=== PATIENT | female | born 1955 | race Caucasian/White ===

== ENCOUNTER 2020-10-24 06:06 | Inpatient (IN) | payer MEDICARE ==
[2020-10-18 14:59] LABS: BASOPHILS % (AUTO) 0.5 % (0-1); EOSINOPHILS # (AUTO) 0.1 X10'3 (0-0.9); EOSINOPHILS % (AUTO) 1.2 % (0-6); LYMPHOCYTES # (AUTO) 1.3 X10'3 (1.1-4.8); LYMPHOCYTES % (AUTO) 27.1 % (21-51); MEAN CORPUSCULAR HEMOGLOBIN 33.2 PG (27.0-31.0); MEAN CORPUSCULAR HGB CONC 33.8 g/dL (33.0-36.5); MEAN CORPUSCULAR VOLUME 98.4 FL (78-98); MONOCYTES # (AUTO) 0.5 X10'3 (0-0.9); MONOCYTES % (AUTO) 9.8 % (2-12); NEUTROPHILS % (AUTO) 61.4 % (42-75); PRE OP HEMATOCRIT 36.4 % (35.0-45.0); PRE OP HEMOGLOBIN 12.3 g/dL (12.0-16.0); PRE OP PLATELET COUNT 284 X10'3 (140-440); RED CELL DISTRIBUTION WIDTH 13.3 % (11.5-14.5)
[2020-10-18 15:12] LABS: PRE OP PROTIME 9.9 SECONDS (9.0-12.0)
[2020-10-18 15:22] LABS: CHLORIDE 99 MMOL/L (99-107); PRE OP POTASSIUM 3.4 MMOL/L (3.4-5.1)
[2020-10-18 15:32] LABS: ALBUMIN/GLOBULIN RATIO 1.2 (1.1-1.5); ALKALINE PHOSPHATASE 64 IU/L (46-116); BLOOD UREA NITROGEN 14 MG/DL (7-18); BUN/CREATININE RATIO 16.9 (6.6-38.0); CALCIUM 9.4 MG/DL (8.5-10.1); CREATININE 0.83 MG/DL (0.40-0.90); PRE OP ALT 19 U/L (30-65); PRE OP ANION GAP 7 (8-16); PRE OP AST 16 U/L (10-37); PRE OP BILIRUB, TOTAL 0.4 MG/DL (0.0-1.0); PRE OP GLUCOSE 95 MG/DL (70-104); PRE OP SODIUM 138 MMOL/L (135-145); TOTAL CARBON DIOXIDE 31.6 MMOL/L (24-32); TOTAL PROTEIN 7.4 G/DL (6.4-8.2); eGFR 69 ML/MIN
[~2020-10-24] VITALS: Ht 167.6 cm; Wt 69.5 kg
[2020-10-24] VITALS (23 sets, daily range): BP systolic 76–127; BP diastolic 41–79
[~2020-10-24 06:06] MED LIST: HYDR-3972 PO; LORA-269 PO; MULTIVITAMIN; POTASSIUM OTC; PRAV10TA39 PO; SERT25TA PO; SYN0.088T PO; VITAMIN D; acetaminophen 325mg tablet PO ONE; cefazolin/dext.iso 2gm/100ml IV ONE; celeCOXIB 100mg capsule PO ONE; famotidine 20mg tablet PO ONE; gabapentin 300mg capsule PO ONE; metoclopramide 5 mg/ml inj IV ONE; oxyCODONE SR 10mg (sust. release) tab -2 tabs (20mg) PO ONE; ringers solution, lacted 1,000 ML IV SCH; tranexamic acid inj. 1,000 MG in normal saline 100 ML IV ONE; vancomycin 1,500 MG in NS 300ml IV soln IV ONE
[2020-10-24] MEDS ORDERED: oxyCODONE/APAP 10/325mg tablet PO PRN (07:10)
[2020-10-24] MEDS ORDERED: magnesium hydroxide 30ml (MOM) UD suspension PO PRN (07:10)
[2020-10-24] MEDS ORDERED: HYDROmorphone inj. 0.5 MG/0.5 ML DISP.SYRIN IV PRN (07:10)
[2020-10-24] MEDS ORDERED: ondansetron/PF 4mg/2ml inj IV PRN ×2 (07:10→10:10)
[2020-10-24] MEDS ORDERED: HYDROmorphone 1 mg/ml syringe IV PRN (07:10)
[2020-10-24] MEDS ORDERED: acetaminophen 325mg tablet PO PRN (07:10)
[2020-10-24] MEDS ORDERED: diphenhydrAMINE 25mg capsule PO PRN ×2 (07:10)
[2020-10-24] MEDS ORDERED: bisacodyl 10mg suppository rectal RC PRN (07:10)
[2020-10-24] MEDS: ceFAZolin/D5W- 1GM premix 50 ML IV SCH ×2 (07:21→16:27)
[2020-10-24] MEDS: ascorbic acid 500mg tablet PO SCH ×2 (08:00→19:15)
[2020-10-24] MEDS ORDERED: sertraline 50mg tablet PO SCH (08:00)
[2020-10-24] MEDS: multivitamins, therapeutics tablet PO SCH (08:00)
[2020-10-24] MEDS: gabapentin 300mg capsule PO SCH ×3 (08:00→21:38)
[2020-10-24] MEDS ORDERED: epiNEPHrine 1 mg/ml inj ONE (08:21)
[2020-10-24] MEDS ORDERED: ketorolac trometh. 30mg/ml inj. ONE (08:21)
[2020-10-24] MEDS ORDERED: vancomycin 1,000mg inj ONE (08:21)
[2020-10-24] MEDS ORDERED: ROPIVAcaine 0.5% (5mg/ml) 30ml vial ONE ×2 (08:21→09:35)
[2020-10-24] MEDS ORDERED: cloNIDine hcl/PF 100mcg/ml inj ONE (08:21)
[2020-10-24] MEDS: aspirin 325mg tablet PO SCH (08:30)
[2020-10-24] MEDS ORDERED: MIDAZolam 1mg/ml 10ml vial ONE ×2 (09:24→09:53)
[2020-10-24] MEDS ORDERED: fentaNYL/PF 50MCG/1 ML 2ML syringe ONE (09:24)
[2020-10-24] MEDS ORDERED: propofol inj 20 ML IV ONE (10:01)
[2020-10-24] MEDS ORDERED: LIDOcaine 2% (20mg/ml) 5ml vial ONE ×2 (10:01→10:33)
[2020-10-24] MEDS ORDERED: morphine 2 MG/ML inj. syringe IV PRN (10:10)
[2020-10-24] MEDS ORDERED: fentaNYL/PF 50MCG/1 ML 2ML syringe IV PRN ×2 (10:10)
[2020-10-24] MEDS ORDERED: ROPIVAcaine 0.2% (10 MG/5 ML) BOLUS INJECTION ADDCANAL PRN (10:10)
[2020-10-24] MEDS ORDERED: labetalol 20mg/4ml (5mg/ml) syringe IV PRN (10:10)
[2020-10-24] MEDS ORDERED: ringers solution, lacted 1,000 ML IV SCH (10:10)
[2020-10-24] MEDS ORDERED: morphine 4 MG/ML inj SYRINge IV PRN (10:10)
[2020-10-24] MEDS ORDERED: hydrALAZINE 20mg/ml inj. IV PRN (10:10)
--- NOTE | 2020-10-24 10:58 | NUR ---
Received from OR via , accompanied by Anesthesiologist DR SHANKS and report given by Anesthesiolgist. PT PRESENTS WITH 18 G RIGHT HAND, DRESSING ON LEFT KNEE DRY AND INTACT. VSS. Addendum: 10/24/20 at 1109 by Keara Samuels RN, RN Amended: Links added.
--- NOTE | 2020-10-24 12:28 | NUR ---
PATIENT HAS MET ALL CRITERIA FOR TRANSFER TO THE ORTHO FLOOR. VSS. REPORT GIVEN TO MICHAEL RN DRESSINGS INTACT. BED LOW, CALL LIGHT PRESENT AND 2 RAILS UP. RN PRESENT TO ACCEPT CARE OF PATIENT AND REPORT HAS BEEN CALLED. ALL QUESTIONS ANSWERED TO ACCEPTING RN. Addendum: 10/24/20 at 1238 by Keara Baca - ALKA RN Amended: Links added.
[2020-10-24] MEDS ORDERED: tranexamic acid inj. 700 MG in normal saline 100ml IV soln 100 ML IV ONE (13:00)
[2020-10-24] MEDS: ROPIVAcaine 0.2%/PF PUMP/bolus 545 ML ADDCANAL SCH (13:38)
[2020-10-24] MEDS ORDERED: normal saline 1000ml 1,000 ML IV ONE (14:00)
--- NOTE | 2020-10-24 14:37 | NUR ---
Problems reprioritized. Patient report given, questions answered & plan of care reviewed with ALINA RUCKER.
--- NOTE | 2020-10-24 14:49 | NUR ---
0800 MEDS NOT GIVEN, PATIENT WAS IN OR
--- NOTE | 2020-10-24 15:00 | NUR ---
Received patient report from [employer] location manager. Assumed patient care agree with charge operatoralining inspector Knee dressing CDI Lang dressing intact fresh ice pack applied per MD orders and On Q ball intact on level 4
[2020-10-24] MEDS: potassium cl 20mEq in 1/2 NS 1,000 ML IV SCH ×3 (15:10→23:10)
--- NOTE | 2020-10-24 18:15 | NUR ---
Problems reprioritized. Patient report given, questions answered & plan of care reviewed with Deirdre RUCKER.
[2020-10-24] MEDS ORDERED: vancomycin/NS 1 GM ADD-VANTAGE 250 ML IV SCH (20:00)
[2020-10-24] MEDS: sennosides 8.6mg tablet PO SCH (21:00)
[2020-10-24] MEDS: LORazepam 0.5 MG tablet PO SCH (21:38)
[2020-10-25] VITALS (7 sets, daily range): BP systolic 91–109; BP diastolic 44–65
[2020-10-25] MEDS: oxyCODONE/APAP 10/325mg tablet PO PRN ×6 (00:10→20:50)
[2020-10-25 05:48] LABS: ANION GAP 7 (8-16); CHLORIDE 109 MMOL/L (99-107); POTASSIUM 3.6 MMOL/L (3.5-5.1); SODIUM 142 MMOL/L (135-145); TOTAL CARBON DIOXIDE 26.3 MMOL/L (24-32)
[2020-10-25 06:19] LABS: BASOPHILS % (AUTO) 0.3 % (0-1); EOSINOPHILS # (AUTO) 0.1 X10'3 (0-0.9); HEMOGLOBIN 9.2 g/dl (12.0-16.0); LYMPHOCYTES # (AUTO) 0.5 X10'3 (1.1-4.8); LYMPHOCYTES % (AUTO) 10.4 % (21-51); MEAN CORPUSCULAR HEMOGLOBIN 33.9 PG (27.0-31.0); MEAN CORPUSCULAR HGB CONC 34.2 g/dL (33.0-36.5); MEAN CORPUSCULAR VOLUME 99.3 FL (78-98); MEAN PLATELET VOLUME 7.5 FL (7.4-10.4); MONOCYTES # (AUTO) 0.3 X10'3 (0-0.9); MONOCYTES % (AUTO) 6.6 % (2-12); NEUTROPHILS # (AUTO) 4.1 X10'3 (1.8-7.7); NEUTROPHILS % (AUTO) 81.7 % (42-75); PLATELET COUNT 198 X10'3 (140-440); RED BLOOD COUNT 2.72 X10'6 (4.20-5.60); RED CELL DISTRIBUTION WIDTH 13.5 % (11.5-14.5)
--- NOTE | 2020-10-25 06:30 | NUR ---
Patient in room ORTHO 4023. I have received report from Ginny brock and had the opportunity to ask questions and assume patient care.
--- NOTE | 2020-10-25 06:36 | NUR ---
Problems reprioritized. Patient report given, questions answered & plan of care reviewed with ALKA SPRINGER.
[2020-10-25] MEDS: potassium cl 20mEq in 1/2 NS 1,000 ML IV SCH ×2 (07:10→15:10)
[2020-10-25] MEDS: multivitamins, therapeutics tablet PO SCH (07:29)
[2020-10-25] MEDS: ascorbic acid 500mg tablet PO SCH ×2 (07:30→20:49)
[2020-10-25] MEDS: sertraline 25mg tablet PO SCH (07:30)
[2020-10-25] MEDS: gabapentin 300mg capsule PO SCH ×3 (07:30→20:50)
[2020-10-25] MEDS: aspirin 325mg tablet PO SCH (07:31)
--- NOTE | 2020-10-25 11:39 | NUR ---
Pt is very pleasant as well as impulsive. Nursing staff continually reminding pt to move slowly and watch hip precautions. Pt has ambulated to bathroom x4 times so far. Pts pain is well controlled with PRN Percocet. Per ortho PA, pt will not discharge until she works with physical therapy on stairs. Will continue to monitor patient closely.
--- NOTE | 2020-10-25 12:15 | NUR ---
Malnutrition/Joint surgery consults: Pt admit s/p L knee surgery this admit PO 100% first regular diet last night. Hx lung CA 2018 in EMR. Pt seen by RD for written/verbal high protein ed w/ RD contact information provided. Pt reports good appetite at this time. Pt has no edema, no significant weakness, and appears WD/WN during RD visit. Does not meet minimum malnutrition criteria at this time. Addendum: 10/25/20 at [address] Amended: Links added.
--- NOTE | 2020-10-25 13:51 | NUR ---
Patient verbalized 10/10 pain however when nursing checked on patient, patient was fast asleep. Will continue to monitor
--- NOTE | 2020-10-25 18:39 | NUR ---
Problems reprioritized. Patient report given, questions answered & plan of care reviewed with Raegan RUCKER.
--- NOTE | 2020-10-25 18:45 | NUR ---
Patient in room ORTHO 4023. I have received report from Milagros RUCKER and had the opportunity to ask questions and assume patient care.
[2020-10-25] MEDS ORDERED: celeCOXIB 100mg capsule PO SCH (20:00)
[2020-10-25] MEDS: LORazepam 0.5 MG tablet PO SCH (20:49)
[2020-10-25] MEDS: sennosides 8.6mg tablet PO SCH (21:00)
[2020-10-26] MEDS: oxyCODONE/APAP 10/325mg tablet PO PRN ×3 (01:18→10:23)
[2020-10-26 06:00] VITALS: BP 109/62
[2020-10-26 06:02] LABS: BASOPHILS % (AUTO) 0.2 % (0-1); EOSINOPHILS % (AUTO) 1.1 % (0-6); HEMATOCRIT 26.8 % (35.0-45.0); HEMOGLOBIN 9.2 g/dl (12.0-16.0); LYMPHOCYTES # (AUTO) 0.6 X10'3 (1.1-4.8); LYMPHOCYTES % (AUTO) 13.6 % (21-51); MEAN CORPUSCULAR HGB CONC 34.2 g/dL (33.0-36.5); MEAN CORPUSCULAR VOLUME 99.2 FL (78-98); MEAN PLATELET VOLUME 7.3 FL (7.4-10.4); MONOCYTES # (AUTO) 0.3 X10'3 (0-0.9); MONOCYTES % (AUTO) 7.7 % (2-12); NEUTROPHILS # (AUTO) 3.3 X10'3 (1.8-7.7); NEUTROPHILS % (AUTO) 77.4 % (42-75); PLATELET COUNT 203 X10'3 (140-440); RED CELL DISTRIBUTION WIDTH 13.5 % (11.5-14.5); WHITE BLOOD COUNT 4.3 X10'3 (4.5-11.0)
--- NOTE | 2020-10-26 06:38 | NUR ---
Problems reprioritized. Patient report given, questions answered & plan of care reviewed with Milagros RUCKER.
--- NOTE | 2020-10-26 06:46 | NUR ---
Patient in room ORTHO 4023. I have received report from Raegan RUCKER and had the opportunity to ask questions and assume patient care.
[2020-10-26] MEDS: multivitamins, therapeutics tablet PO SCH (08:11)
[2020-10-26] MEDS: aspirin 325mg tablet PO SCH (08:11)
[2020-10-26] MEDS: ascorbic acid 500mg tablet PO SCH (08:11)
[2020-10-26] MEDS: gabapentin 300mg capsule PO SCH ×2 (08:11→13:00)
[2020-10-26] MEDS: sertraline 25mg tablet PO SCH (08:11)
[2020-10-26 10:00] VITALS: BP 132/72
[2020-10-26] MEDS: ROPIVAcaine 0.2%/PF PUMP/bolus 545 ML ADDCANAL SCH (11:49)
--- NOTE | 2020-10-26 13:11 | NUR ---
patient discharged [facility] at 1300. Belongings sent with patient. Iv removed, tip intact, no complications. Patient discharged in stable condition with sister in private vehicle
== END 2020-10-26 12:55 | disposition home or self-care (01) | DRG 470 ==
LOC: PAS 06:06 → ORTHO 4S 07:08 → PAS 13:00 → ORTHO 4S 14:00
PROVIDERS: ADMIT Orthopaedic Surgery; ATTEND Orthopaedic Surgery
PROC: 3E0T3BZ Introduction of Anesthetic Agent into Peripheral Nerves and Plexi, Percutaneous Approach (ICD-10-PCS; 2020-10-24)
PROC: 3E0T33Z Introduction of Anti-inflammatory into Peripheral Nerves and Plexi, Percutaneous Approach (ICD-10-PCS; 2020-10-24)
PROC: 0SRD069 Replacement of Left Knee Joint with Oxidized Zirconium on Polyethylene Synthetic Substitute, Cemented, Open Approach (ICD-10-PCS; principal; 2020-10-24 09:18)
DX: M17.12 Unilateral primary osteoarthritis, left knee (principal); E03.9 Hypothyroidism, unspecified; Z79.899 Other long term (current) drug therapy; Z79.890 Hormone replacement therapy; D50.0 Iron deficiency anemia secondary to blood loss (chronic)
CPT/HCPCS: 36415; 73560; 80051; 80053; 82948; 84443; 85025; 85610; 85730; 86885; 86900; 86901; 87081; 97110; 97116; 97530; A4215; A7000; C1713; C1776; G0378; J0171; J0690; J0735; J1885; J2001; J2250; J2704; J2765; J2795; J3010; J3370; J3480; J7030; J7040; J7120; U0003; U0005

== ENCOUNTER 2021-06-13 06:34 | Day surgery (SDC) | payer MEDICARE ==
[2021-06-13] VITALS (13 sets, daily range): BP systolic 95–108; BP diastolic 47–72
[~2021-06-13] VITALS: Ht 167.6 cm; Wt 70.4 kg
[~2021-06-13 06:34] MED LIST changes: -HYDR-3972 PO; -acetaminophen 325mg tablet PO ONE; -cefazolin/dext.iso 2gm/100ml IV ONE; -celeCOXIB 100mg capsule PO ONE; -famotidine 20mg tablet PO ONE; -gabapentin 300mg capsule PO ONE; -metoclopramide 5 mg/ml inj IV ONE; -oxyCODONE SR 10mg (sust. release) tab -2 tabs (20mg) PO ONE; -ringers solution, lacted 1,000 ML IV SCH; -tranexamic acid inj. 1,000 MG in normal saline 100 ML IV ONE; -vancomycin 1,500 MG in NS 300ml IV soln IV ONE
[2021-06-13] MEDS ORDERED: normal saline 1000ml 1,000 ML IV SCH (07:00)
[2021-06-13] MEDS ORDERED: LEVO50TA8 PO (07:21)
[2021-06-13] MEDS ORDERED: SERT-434 PO (07:21)
[2021-06-13] MEDS ORDERED: PRAV40TA3 PO (07:21)
[2021-06-13] MEDS ORDERED: LORA-268 PO (07:21)
[2021-06-13] MEDS ORDERED: CHOL100046 PO (07:26)
[2021-06-13] MEDS ORDERED: MULT-620 PO (07:26)
[2021-06-13] MEDS ORDERED: HYDR-3972 PO (07:26)
[2021-06-13 07:36] LABS: BASOPHILS % (AUTO) 0.9 % (0-1); EOSINOPHILS # (AUTO) 0.1 X10'3 (0-0.9); EOSINOPHILS % (AUTO) 3.4 % (0-6); HEMATOCRIT 35.6 % (35.0-45.0); HEMOGLOBIN 12.2 g/dl (12.0-16.0); LYMPHOCYTES % (AUTO) 28.6 % (21-51); MEAN CORPUSCULAR HEMOGLOBIN 33.3 PG (27.0-31.0); MEAN CORPUSCULAR HGB CONC 34.2 g/dL (33.0-36.5); MEAN CORPUSCULAR VOLUME 97.3 FL (78-98); MEAN PLATELET VOLUME 6.6 FL (7.4-10.4); MONOCYTES # (AUTO) 0.3 X10'3 (0-0.9); MONOCYTES % (AUTO) 9.3 % (2-12); NEUTROPHILS % (AUTO) 57.8 % (42-75); PLATELET COUNT 265 X10'3 (140-440); RED BLOOD COUNT 3.65 X10'6 (4.20-5.60); RED CELL DISTRIBUTION WIDTH 12.7 % (11.5-14.5); WHITE BLOOD COUNT 3.4 X10'3 (4.5-11.0)
[2021-06-13] MEDS ORDERED: LIDOcaine 1% (10mg/ml) 2ml vial ONE (08:42)
[2021-06-13] MEDS ORDERED: midazolam 1 mg/ML 2ml injection ONE (08:42)
[2021-06-13] MEDS ORDERED: fentaNYL/PF 50MCG/1 ML 2ML syringe ONE (08:43)
== END 2021-06-13 13:15 | disposition home or self-care (01) ==
LOC: SSTAY O 06:34
PROVIDERS: ATTEND Radiology Vascular & Interventional Radiology
DX: R91.1 Solitary pulmonary nodule (principal); C34.12 Malignant neoplasm of upper lobe, left bronchus or lung; Z88.2 Allergy status to sulfonamides; Z88.8 Allergy status to other drugs, medicaments and biological substances; Z79.899 Other long term (current) drug therapy
CPT/HCPCS: 32408; 36415; 71045; 85025; 99152; 99153; J2250; J3010; J3490; 77012

== ENCOUNTER 2022-10-10 18:31 | Emergency (ER) | payer MEDICARE ==
[~2022-10-10] VITALS: Ht 167.6 cm; Wt 68.2 kg
[~2022-10-10 18:31] MED LIST changes: +CHOL100046 PO; +HYDR-3972 PO; +LEVO50TA8 PO; +LORA-268 PO; -LORA-269 PO; +MULT-620 PO; -MULTIVITAMIN; -POTASSIUM OTC; -PRAV10TA39 PO; +PRAV40TA3 PO; +SERT-434 PO; -SERT25TA PO; -SYN0.088T PO; -VITAMIN D
[2022-10-10 18:45] VITALS: BP 161/102
== END 2022-10-10 18:52 | disposition home or self-care (01) ==
LOC: ER 18:33
DX: V98.8XXA Other specified transport accidents, initial encounter; Y93.89 Activity, other specified; Y92.89 Other specified places as the place of occurrence of the external cause; Y99.8 Other external cause status
CPT/HCPCS: 99283